=== PATIENT | female | born 1955 | race Caucasian/White ===

== ENCOUNTER 2017-05-22 13:12 | Emergency (ER) | payer MEDICARE, OTHER ==
[~2017-05-22] VITALS: Ht 157.5 cm; Wt 82.0 kg
[2017-05-22] MEDS ORDERED: HYDROmorphone 1 MG/ML, 1ML ONE (14:11)
[2017-05-22] MEDS ORDERED: DIAZEPAM 5 MG TABLET ONE (14:11)
[2017-05-22] MEDS ORDERED: PLEASE ENTER ALLERGIES MC SCH ×2 (14:30)
[2017-05-22] MEDS ORDERED: DIAZEPAM 5 MG TABLET PO ONE (14:30)
[2017-05-22] MEDS ORDERED: HYDROmorphone 1 MG/ML, 1ML IM ONE (14:30)
[2017-05-22 16:13] VITALS: BP 136/72
[2017-05-22] MEDS ORDERED: DEXAMETHASONE 4 MG/ML, 5ML ONE (17:14)
[2017-05-22] MEDS ORDERED: HALOPERIDOL 5 MG/ML ONE (17:41)
[2017-05-22] MEDS ORDERED: DEXAMETHASONE 4 MG/ML, 1ML PO ONE (18:00)
== END 2017-05-22 17:48 | disposition home or self-care (01) ==
LOC: ED 15:00
DX: S70.02XA Contusion of left hip, initial encounter (principal); M54.16 Radiculopathy, lumbar region; I10 Essential (primary) hypertension; J44.9 Chronic obstructive pulmonary disease, unspecified; W19.XXXA Unspecified fall, initial encounter; Y93.89 Activity, other specified; Y92.009 Unspecified place in unspecified non-institutional (private) residence as the place of occurrence of the external cause; Y99.9 Unspecified external cause status
CPT/HCPCS: 72110; 72131; 72192; 96372; 99284; J1100; J1170

== ENCOUNTER 2017-09-26 15:50 | Inpatient (IN) | payer MEDICARE, OTHER ==
[~2017-09-26] VITALS: Ht 154.9 cm; Wt 96.0 kg
[2017-09-26 16:29] LABS: BASOPHILS # (AUTO) 0.04 x10^3/uL (0-0.1); BASOPHILS % (AUTO) 0 % (0-1); EOSINOPHILS # (AUTO) 0.15 x10^3/uL (0-0.4); EOSINOPHILS % (AUTO) 1 % (1-7); LYMPHOCYTES # (AUTO) 2.28 x10^3/uL (1-3.4); LYMPHOCYTES % (AUTO) 20 % (22-44); MD NO; MEAN CORPUSCULAR HEMOGLOBIN 27.7 pg (27.0-34.8); MEAN CORPUSCULAR HGB CONC 32.7 g/dL (32.4-35.8); MEAN CORPUSCULAR VOLUME 84.6 fL (80-100); MEAN PLATELET VOLUME 8.2 fL (7.4-10.4); MONOCYTES # (AUTO) 0.99 x10^3/uL (0.2-0.8); MONOCYTES % (AUTO) 9 % (2-9); NEUTROPHILS # (AUTO) 7.76 x10^3/uL (1.8-6.8); NEUTROPHILS % (AUTO) 69 % (42-75); PLATELET COUNT 271 x10^3/uL (130-400); RED BLOOD COUNT 4.76 x10^6/uL (3.82-5.3); RED CELL DISTRIBUTION WIDTH 14.5 % (9.6-15.2)
[2017-09-26] MEDS ORDERED: SODIUM CHLORIDE FLUSH 10ML SYR IVF ONE ×2 (16:30→18:30)
[2017-09-26 16:37] LABS: MICROSCOPIC NOT IND
[2017-09-26] MEDS ORDERED: GABA100C PO (16:37)
[2017-09-26] MEDS ORDERED: HYDR-3245 PO (16:37)
[2017-09-26] MEDS ORDERED: CARV6.252 PO (16:37)
[2017-09-26] MEDS ORDERED: SOLI5TAB2 PO (16:37)
[2017-09-26] MEDS ORDERED: LORA2TAB PO (16:37)
[2017-09-26] MEDS ORDERED: ASPI-515 PO (16:37)
[2017-09-26] MEDS ORDERED: NITR0.4T28 SL (16:37)
[2017-09-26] MEDS ORDERED: FURO20TA3 PO (16:37)
[2017-09-26] MEDS ORDERED: LISI-170 PO (16:37)
[2017-09-26] MEDS ORDERED: CYCL-259 PO (16:37)
[2017-09-26] MEDS ORDERED: ALBU18HF INH (16:37)
[2017-09-26] MEDS ORDERED: CELE200C PO (16:37)
[2017-09-26] MEDS ORDERED: POTA10TA5 PO (16:37)
[2017-09-26] MEDS ORDERED: ESCI20TA PO (16:37)
[2017-09-26] MEDS ORDERED: TRAZ50TA18 PO (16:37)
[2017-09-26] MEDS ORDERED: PRED5TAB PO (16:37)
[2017-09-26 16:39] LABS: ALANINE AMINOTRANSFERASE 28 U/L (12-78); ALBUMIN 3.9 g/dL (3.4-5.0); ANION GAP 4 mmol/L (5-15); CALCIUM 9.5 mg/dL (8.5-10.1); CHLORIDE 107 mmol/L (98-107); CREATININE 0.98 mg/dL (0.55-1.02)
[2017-09-26 16:40] LABS: SALICYLATE LEVEL < 1.7 mg/dL (2.8-20.0)
[2017-09-26 16:44] LABS: ALKALINE PHOSPHATASE 86 U/L (45-117); BILIRUBIN,TOTAL 0.3 mg/dL (0.2-1.0); TOTAL PROTEIN 7.8 g/dL (6.4-8.2); TROPONIN I < 0.015 ng/mL (0.000-0.045)
[2017-09-26 16:48] LABS: AMPHETAMINE SCREEN, URINE Negative (Negative); BARBITURATE SCREEN, URINE Negative (Negative); BENZODIAZEPINE SCREEN, URINE Negative (Negative); CANNABINOID SCREEN, URINE Negative (Negative); COCAINE SCREEN, URINE Negative (Negative); METHADONE SCREEN, URINE Negative (Negative); OPIATE SCREEN, URINE Negative (Negative)
[2017-09-26 16:48] LABS: ACETAMINOPHEN < 2 mcg/mL (10-30)
[2017-09-26 16:52] LABS: CULTURE INDICATED? NO
[2017-09-26] MEDS ORDERED: SODIUM CHLORIDE 0.9% 1,000 ML IV ONE (18:00)
[2017-09-26] MEDS ORDERED: ALBUTEROL SULFATE 2.5 MG/3 ML NPPB PRN (19:30)
[2017-09-26] MEDS ORDERED: NITROGLYCERIN 0.4 MG BOTTLE (25 TABS) SL PRN (19:30)
[2017-09-26] MEDS ORDERED: ONDANSETRON ODT 4 MG PO PRN (19:30)
[2017-09-26] MEDS ORDERED: DOCUSATE 100 MG CAPSULE PO PRN (19:30)
[2017-09-26 20:20] LABS: FREE T4 (FREE THYROXINE) 0.95 ng/dL (0.76-1.46); THYROID STIMULATING HORMONE 0.708 mIU/L (0.358-3.740)
[2017-09-26 20:24] VITALS: BP 113/75
[2017-09-26 20:37] LABS: HEMOGLOBIN A1C 6.1 % (4.2-6.3)
[2017-09-26] MEDS: CARVEDILOL 6.25 MG TABLET PO SCH (21:08)
[2017-09-26] MEDS: CYCLOBENZAPRINE 10 MG TABLET PO SCH (21:10)
[2017-09-26] MEDS: TRAZODONE 50MG TABLET PO SCH (21:10)
[2017-09-26] MEDS: GABAPENTIN 100 MG CAPSULE PO SCH (21:10)
[2017-09-26] MEDS: HYDROcodone/APAP 10/325 MG TABLET PO PRN (21:11)
[2017-09-26] MEDS: ENOXAPARIN 40 MG/0.4 ML SQ SCH (21:11)
[2017-09-27 00:42] VITALS: BP 114/73
[2017-09-27 05:22] LABS: BASOPHILS # (AUTO) 0.04 x10^3/uL (0-0.1); BASOPHILS % (AUTO) 0 % (0-1); EOSINOPHILS # (AUTO) 0.11 x10^3/uL (0-0.4); EOSINOPHILS % (AUTO) 1 % (1-7); LYMPHOCYTES # (AUTO) 2.56 x10^3/uL (1-3.4); LYMPHOCYTES % (AUTO) 26 % (22-44); MD NO; MEAN CORPUSCULAR HEMOGLOBIN 27.8 pg (27.0-34.8); MEAN CORPUSCULAR HGB CONC 32.8 g/dL (32.4-35.8); MEAN CORPUSCULAR VOLUME 84.7 fL (80-100); MEAN PLATELET VOLUME 8.4 fL (7.4-10.4); MONOCYTES # (AUTO) 0.71 x10^3/uL (0.2-0.8); MONOCYTES % (AUTO) 7 % (2-9); NEUTROPHILS % (AUTO) 66 % (42-75); PLATELET COUNT 237 x10^3/uL (130-400); RED BLOOD COUNT 4.48 x10^6/uL (3.82-5.3)
[2017-09-27 05:32] LABS: CHLORIDE 108 mmol/L (98-107)
[2017-09-27 05:46] LABS: ANION GAP 5 mmol/L (5-15); CALCIUM 9.8 mg/dL (8.5-10.1); CHOL/HDL RATIO 2.2; CHOLESTEROL, TOTAL 125 mg/dL (140-239); CREATININE 0.75 mg/dL (0.55-1.02); HDL CHOL % 46 % (28-40); HDL CHOLESTEROL (DIRECT) 57 mg/dL (40-60); LDL CHOLESTEROL,CALCULATED 52 mg/dL (54-169); LDL/HDL RATIO 0.9 (0.5-3.0); TRIGLYCERIDES 81 mg/dL (50-200); VLDL CHOLESTEROL 16 mg/dL (0-25)
[2017-09-27 07:38] VITALS: BP 126/92
[2017-09-27] MEDS: FUROSEMIDE 20 MG TABLET PO SCH (09:01)
[2017-09-27] MEDS: CARVEDILOL 6.25 MG TABLET PO SCH ×2 (09:01→20:18)
[2017-09-27] MEDS: OXYBUTYNIN CHLORIDE 5 MG TABLET PO SCH ×2 (09:01→20:18)
[2017-09-27] MEDS: GABAPENTIN 100 MG CAPSULE PO SCH ×3 (09:01→20:19)
[2017-09-27] MEDS: CYCLOBENZAPRINE 10 MG TABLET PO SCH ×3 (09:01→20:19)
[2017-09-27] MEDS: POTASSIUM CHLORIDE 10 MEQ TABLET.ER PO SCH (09:01)
[2017-09-27] MEDS: LISINOPRIL 20 MG TABLET PO SCH (09:01)
[2017-09-27] MEDS: CITALOPRAM 20 MG TABLET PO SCH (09:01)
[2017-09-27] MEDS: ASPIRIN 81 MG TABLET EC PO SCH (09:01)
[2017-09-27 12:42] VITALS: BP 123/85
[2017-09-27] MEDS ORDERED: GADOBUTROL 10 MMOL/10 ML VIAL ONE (15:16)
[2017-09-27 19:29] VITALS: BP 102/66
[2017-09-27] MEDS: TRAZODONE 50MG TABLET PO SCH (20:18)
[2017-09-27] MEDS: ENOXAPARIN 40 MG/0.4 ML SQ SCH (20:27)
[2017-09-28 02:30] VITALS: BP 94/54
[2017-09-28 08:29] VITALS: BP 93/69
[2017-09-28] MEDS: ASPIRIN 81 MG TABLET EC PO SCH (08:55)
[2017-09-28] MEDS: CYCLOBENZAPRINE 10 MG TABLET PO SCH ×2 (08:55→16:08)
[2017-09-28] MEDS: OXYBUTYNIN CHLORIDE 5 MG TABLET PO SCH (08:56)
[2017-09-28] MEDS: POTASSIUM CHLORIDE 10 MEQ TABLET.ER PO SCH (08:56)
[2017-09-28] MEDS: FUROSEMIDE 20 MG TABLET PO SCH (08:56)
[2017-09-28] MEDS: CARVEDILOL 6.25 MG TABLET PO SCH (08:58)
[2017-09-28] MEDS: GABAPENTIN 100 MG CAPSULE PO SCH ×2 (08:58→16:08)
[2017-09-28] MEDS: LISINOPRIL 20 MG TABLET PO SCH (08:59)
[2017-09-28] MEDS: CITALOPRAM 20 MG TABLET PO SCH (08:59)
[2017-09-28] MEDS: HYDROcodone/APAP 10/325 MG TABLET PO PRN ×2 (13:24→18:09)
[2017-09-28 13:34] VITALS: BP 109/74
[2017-09-28] MEDS ORDERED: GABA100C PO (15:15)
[2017-09-28] MEDS ORDERED: DOCU-131 PO (15:15)
== END 2017-09-28 18:31 | disposition home or self-care (01) | DRG 92 ==
LOC: ED 17:28 → UNDOADMIN 17:44 → EDIP 17:44 → 4EST 18:07
PROVIDERS: ADMIT Hospitalist; ATTEND Hospitalist
DX: G92 Toxic encephalopathy (principal); F33.9 Major depressive disorder, recurrent, unspecified; I95.9 Hypotension, unspecified; I11.9 Hypertensive heart disease without heart failure; E66.01 Morbid (severe) obesity due to excess calories; R56.9 Unspecified convulsions; F11.20 Opioid dependence, uncomplicated; G45.9 Transient cerebral ischemic attack, unspecified; Z68.41 Body mass index [BMI] 40.0-44.9, adult; E78.5 Hyperlipidemia, unspecified; I20.9 Angina pectoris, unspecified; F41.9 Anxiety disorder, unspecified; J44.9 Chronic obstructive pulmonary disease, unspecified; Z80.0 Family history of malignant neoplasm of digestive organs; Z82.49 Family history of ischemic heart disease and other diseases of the circulatory system; Z87.891 Personal history of nicotine dependence; Z83.3 Family history of diabetes mellitus; Z90.710 Acquired absence of both cervix and uterus; Z98.51 Tubal ligation status; T50.905A Adverse effect of unspecified drugs, medicaments and biological substances, initial encounter; Y92.89 Other specified places as the place of occurrence of the external cause; G89.29 Other chronic pain; M54.9 Dorsalgia, unspecified; M19.90 Unspecified osteoarthritis, unspecified site
CPT/HCPCS: 36415; 70450; 70553; 71045; 80048; 80053; 80061; 80307; 80329; 81003; 82140; 83036; 83605; 83735; 84439; 84443; 84484; 85025; 93005; 93306; 93880; 99285; A9585; J1650; 92523-GN; G0480; J7512

== ENCOUNTER 2017-10-27 13:43 | Inpatient (IN) | payer MEDICARE ==
[~2017-10-27] VITALS: Ht 157.5 cm; Wt 94.2 kg
[~2017-10-27 13:43] MED LIST: ALBU18HF INH; ASPI-515 PO; CARV6.252 PO; CELE200C PO; CYCL-259 PO; DOCU-131 PO; ESCI20TA PO; FURO20TA3 PO; GABA100C PO; HYDR-3245 PO; LISI-170 PO; LORA2TAB PO; NITR0.4T28 SL; POTA10TA5 PO; PRED5TAB PO; SOLI5TAB2 PO; TRAZ50TA18 PO
[2017-10-27] MEDS ORDERED: MECLIZINE CHEWABLE 25 MG TAB PO ONE (14:00)
[2017-10-27] MEDS ORDERED: PLEASE ENTER HEIGHT AND WEIGHT MC SCH (14:00)
[2017-10-27] MEDS ORDERED: SODIUM CHLORIDE FLUSH 10ML SYR IVF ONE (14:00)
[2017-10-27] MEDS ORDERED: MECLIZINE CHEWABLE 25 MG TAB ONE (14:06)
[2017-10-27] MEDS ORDERED: FURO-93 PO (14:18)
[2017-10-27 14:33] LABS: MEAN CORPUSCULAR HGB CONC 32.2 g/dL (32.4-35.8); MEAN CORPUSCULAR VOLUME 83.7 fL (80-100); MEAN PLATELET VOLUME 8.9 fL (7.4-10.4); PLATELET COUNT 287 x10^3/uL (130-400); RED BLOOD COUNT 5.14 x10^6/uL (3.82-5.3); RED CELL DISTRIBUTION WIDTH 14.4 % (9.6-15.2)
[2017-10-27 14:42] LABS: ALANINE AMINOTRANSFERASE 33 U/L (12-78); ALBUMIN 3.6 g/dL (3.4-5.0); ANION GAP 8 mmol/L (5-15); CALCIUM 9.9 mg/dL (8.5-10.1); CHLORIDE 108 mmol/L (98-107)
[2017-10-27 14:47] LABS: ALKALINE PHOSPHATASE 94 U/L (45-117); BILIRUBIN,TOTAL 0.2 mg/dL (0.2-1.0); CREATININE 0.93 mg/dL (0.55-1.02); TOTAL PROTEIN 7.3 g/dL (6.4-8.2); TROPONIN I < 0.015 ng/mL (0.000-0.045)
[2017-10-27 15:07] LABS: BASOPHILS # (AUTO) 0.04 x10^3/uL (0-0.1); BASOPHILS % (AUTO) 0 % (0-1); EOSINOPHILS # (AUTO) 0.26 x10^3/uL (0-0.4); EOSINOPHILS % (AUTO) 2 % (1-7); LYMPHOCYTES # (AUTO) 2.34 x10^3/uL (1-3.4); LYMPHOCYTES % (AUTO) 18 % (22-44); MD SCAN; MONOCYTES # (AUTO) 1.56 x10^3/uL (0.2-0.8); MONOCYTES % (AUTO) 12 % (2-9); NEUTROPHILS # (AUTO) 8.96 x10^3/uL (1.8-6.8); NEUTROPHILS % (AUTO) 68 % (42-75)
[2017-10-27] MEDS ORDERED: ATOR-2 PO (15:12)
[2017-10-27] MEDS ORDERED: SODIUM CHLORIDE 0.9% 1,000ML IVBOLUS ONE (16:00)
[2017-10-27 16:56] LABS: CULTURE INDICATED? YES; MICROSCOPIC INDICATED
[2017-10-27] MEDS ORDERED: METOCLOPRAMIDE 5 MG/ML, 2ML IVPush PRN (17:00)
[2017-10-27] MEDS ORDERED: ONDANSETRON ODT 4 MG PO PRN (17:00)
[2017-10-27 17:03] LABS: AMPHETAMINE SCREEN, URINE Negative (Negative); BARBITURATE SCREEN, URINE Negative (Negative); BENZODIAZEPINE SCREEN, URINE Negative (Negative); CANNABINOID SCREEN, URINE Negative (Negative); COCAINE SCREEN, URINE Negative (Negative); METHADONE SCREEN, URINE Negative (Negative); OPIATE SCREEN, URINE Negative (Negative)
[2017-10-27] MEDS ORDERED: DEXTROSE 50%, 50ML SYRINGE IVPush PRN (18:00)
[2017-10-27] MEDS ORDERED: DEXTROSE 4 GM TAB.CHEW PO PRN (18:00)
[2017-10-27] MEDS ORDERED: GLUCAGON 1 MG IM PRN (18:00)
[2017-10-27 18:02] VITALS: BP 123/73
[2017-10-27] MEDS: ACETAMINOPHEN 325 MG TABLET PO PRN ×2 (18:07→23:16)
[2017-10-27 18:46] VITALS: BP 135/94
[2017-10-27] MEDS: ALBUTEROL/IPRATROPIUM 2.5MG/0.5MG, 3 ML NPPB SCH (20:25)
[2017-10-27] MEDS: INSULIN REGULAR 100 UNITS/ML, 3ML VIAL SQ-INSULIN SCH (21:00)
[2017-10-27 22:34] LABS: TROPONIN I < 0.015 ng/mL (0.000-0.045)
[2017-10-27] MEDS: GABAPENTIN 100 MG CAPSULE PO SCH (23:15)
[2017-10-27] MEDS: CYCLOBENZAPRINE 10 MG TABLET PO SCH (23:15)
[2017-10-27] MEDS: ATORVASTATIN 40 MG TABLET PO SCH (23:15)
[2017-10-27] MEDS: SODIUM CHLORIDE FLUSH 10ML SYR IVF SCH (23:17)
[2017-10-27] MEDS: CEFTRIAXONE 2 GM in DEXTROSE 5% 50 ML IV SCH (23:42)
[2017-10-28 00:18] VITALS: BP 105/70
[2017-10-28 04:12] LABS: TROPONIN I < 0.015 ng/mL (0.000-0.045)
[2017-10-28] MEDS: ACETAMINOPHEN 325 MG TABLET PO PRN ×2 (05:26→09:53)
[2017-10-28] MEDS: ALBUTEROL/IPRATROPIUM 2.5MG/0.5MG, 3 ML NPPB SCH ×4 (06:54→19:43)
[2017-10-28] MEDS: INSULIN REGULAR 100 UNITS/ML, 3ML VIAL SQ-INSULIN SCH ×4 (07:00→21:00)
[2017-10-28 07:20] VITALS: BP 102/69
[2017-10-28] MEDS: SOLIFENACIN SUCCINATE 5 MG PO SCH (09:00)
[2017-10-28] MEDS: CYCLOBENZAPRINE 10 MG TABLET PO SCH ×3 (09:07→21:22)
[2017-10-28] MEDS: GABAPENTIN 100 MG CAPSULE PO SCH ×3 (09:07→21:22)
[2017-10-28] MEDS: CITALOPRAM 20 MG TABLET PO SCH (09:08)
[2017-10-28] MEDS: ASPIRIN 81 MG TABLET EC PO SCH (09:08)
[2017-10-28] MEDS: SODIUM CHLORIDE FLUSH 10ML SYR IVF SCH ×3 (09:09→21:22)
[2017-10-28 10:12] LABS: BASOPHILS # (AUTO) 0.04 x10^3/uL (0-0.1); BASOPHILS % (AUTO) 1 % (0-1); EOSINOPHILS # (AUTO) 0.19 x10^3/uL (0-0.4); EOSINOPHILS % (AUTO) 2 % (1-7); LYMPHOCYTES % (AUTO) 36 % (22-44); MD NO; MEAN CORPUSCULAR HEMOGLOBIN 27.1 pg (27.0-34.8); MEAN CORPUSCULAR VOLUME 84.6 fL (80-100); MEAN PLATELET VOLUME 8.6 fL (7.4-10.4); MONOCYTES # (AUTO) 0.66 x10^3/uL (0.2-0.8); MONOCYTES % (AUTO) 8 % (2-9); NEUTROPHILS # (AUTO) 4.31 x10^3/uL (1.8-6.8); NEUTROPHILS % (AUTO) 53 % (42-75); PLATELET COUNT 257 x10^3/uL (130-400); RED BLOOD COUNT 4.37 x10^6/uL (3.82-5.3); RED CELL DISTRIBUTION WIDTH 14.4 % (9.6-15.2)
[2017-10-28 10:25] LABS: ANION GAP 5 mmol/L (5-15); CALCIUM 9.6 mg/dL (8.5-10.1); CHLORIDE 105 mmol/L (98-107)
[2017-10-28 10:28] LABS: CREATININE 0.83 mg/dL (0.55-1.02)
[2017-10-28 12:47] VITALS: BP 112/76
[2017-10-28] MEDS ORDERED: DIPHENHYDRAMINE 50 MG/ML, 1ML IVPush ONE (14:30)
[2017-10-28] MEDS ORDERED: ASPIRIN 325 MG TABLET EC PO ONE (14:30)
[2017-10-28 14:58] LABS: HEMOGLOBIN A1C 5.9 % (4.2-6.3)
[2017-10-28] MEDS: ENOXAPARIN 40 MG/0.4 ML SQ SCH (15:29)
[2017-10-28] MEDS: SODIUM CHLORIDE 0.9% 1,000 ML IV SCH (15:30)
[2017-10-28] MEDS ORDERED: METOCLOPRAMIDE 5 MG/ML, 2ML IVPush PRN (17:00)
[2017-10-28] MEDS: CEFTRIAXONE 2 GM in DEXTROSE 5% 50 ML IV SCH (18:02)
[2017-10-28 19:55] VITALS: BP 108/68
[2017-10-28] MEDS: ATORVASTATIN 40 MG TABLET PO SCH (21:22)
[2017-10-28] MEDS: KETOROLAC 30 MG/1 ML IVPush PRN (22:26)
[2017-10-29 00:40] VITALS: BP 105/63
[2017-10-29] MEDS: SODIUM CHLORIDE 0.9% 1,000 ML IV SCH (02:55)
[2017-10-29 05:20] LABS: LDL/HDL RATIO 0.6 (0.5-3.0)
[2017-10-29] MEDS ORDERED: ASPIRIN 325 MG TABLET EC PO SCH (06:00)
[2017-10-29] MEDS: ACETAMINOPHEN 325 MG TABLET PO PRN (06:04)
[2017-10-29] MEDS: ALBUTEROL/IPRATROPIUM 2.5MG/0.5MG, 3 ML NPPB SCH ×4 (06:45→20:48)
[2017-10-29] MEDS: INSULIN REGULAR 100 UNITS/ML, 3ML VIAL SQ-INSULIN SCH ×4 (07:00→21:55)
[2017-10-29 08:01] VITALS: BP 107/73
[2017-10-29] MEDS: SODIUM CHLORIDE FLUSH 10ML SYR IVF SCH ×4 (08:24→21:00)
[2017-10-29] MEDS: CITALOPRAM 20 MG TABLET PO SCH (08:26)
[2017-10-29] MEDS: CYCLOBENZAPRINE 10 MG TABLET PO SCH ×3 (08:27→21:58)
[2017-10-29] MEDS: GABAPENTIN 100 MG CAPSULE PO SCH ×3 (08:28→21:59)
[2017-10-29] MEDS: ASPIRIN 81 MG TABLET EC PO SCH ×2 (08:30→11:10)
[2017-10-29] MEDS: SOLIFENACIN SUCCINATE 5 MG PO SCH (08:30)
[2017-10-29] MEDS ORDERED: REGADENOSON 0.4 MG/5 ML SYRINGE ONE (09:06)
[2017-10-29] MEDS: KETOROLAC 30 MG/1 ML IVPush PRN (11:10)
[2017-10-29 13:16] VITALS: BP 119/77
[2017-10-29] MEDS ORDERED: METOCLOPRAMIDE 5 MG/ML, 2ML IVPush ONE ×2 (13:30→22:35)
[2017-10-29] MEDS ORDERED: DIPHENHYDRAMINE 50 MG/ML, 1ML IVPush ONE (13:30)
[2017-10-29] MEDS: ENOXAPARIN 40 MG/0.4 ML SQ SCH (15:00)
[2017-10-29 15:40] VITALS: BP 130/77
[2017-10-29] MEDS ORDERED: OMNIPAQUE 350 MG/ML, 100ML BOTTLE ONE (16:23)
[2017-10-29] MEDS ORDERED: CEFTRIAXONE 2 GM in DEXTROSE 5% 50 ML IV SCH (18:00)
[2017-10-29 18:27] VITALS: BP 111/72
[2017-10-29] MEDS: ATORVASTATIN 40 MG TABLET PO SCH (21:58)
[2017-10-30 02:01] VITALS: BP 138/87
[2017-10-30 06:55] VITALS: BP 107/70
[2017-10-30] MEDS: INSULIN REGULAR 100 UNITS/ML, 3ML VIAL SQ-INSULIN SCH ×2 (07:00→11:00)
[2017-10-30] MEDS: ALBUTEROL/IPRATROPIUM 2.5MG/0.5MG, 3 ML NPPB SCH ×2 (08:33→12:43)
[2017-10-30] MEDS: SOLIFENACIN SUCCINATE 5 MG PO SCH (09:00)
[2017-10-30] MEDS: ASPIRIN 81 MG TABLET EC PO SCH (09:00)
[2017-10-30] MEDS: SODIUM CHLORIDE FLUSH 10ML SYR IVF SCH ×2 (09:00→09:02)
[2017-10-30] MEDS: CITALOPRAM 20 MG TABLET PO SCH (09:00)
[2017-10-30] MEDS: CYCLOBENZAPRINE 10 MG TABLET PO SCH (09:00)
[2017-10-30] MEDS: GABAPENTIN 100 MG CAPSULE PO SCH (09:00)
[2017-10-30] MEDS: KETOROLAC 30 MG/1 ML IVPush PRN (10:32)
[2017-10-30] MEDS: ACETAMINOPHEN 325 MG TABLET PO PRN (10:32)
[2017-10-30 14:44] VITALS: BP 146/86
== END 2017-10-30 15:22 | disposition home or self-care (01) | DRG 871 ==
LOC: ED 15:21 → EDIP 15:51 → 5SO 17:27 → 4EST 10-29 17:12
PROVIDERS: ADMIT Hospitalist; ATTEND Hospitalist
DX: A41.9 Sepsis, unspecified organism (principal); G92 Toxic encephalopathy; F11.20 Opioid dependence, uncomplicated; E66.01 Morbid (severe) obesity due to excess calories; D89.9 Disorder involving the immune mechanism, unspecified; N39.0 Urinary tract infection, site not specified; F33.9 Major depressive disorder, recurrent, unspecified; J44.9 Chronic obstructive pulmonary disease, unspecified; E11.9 Type 2 diabetes mellitus without complications; F41.9 Anxiety disorder, unspecified; G89.29 Other chronic pain; I10 Essential (primary) hypertension; I20.9 Angina pectoris, unspecified; M19.90 Unspecified osteoarthritis, unspecified site; Z86.73 Personal history of transient ischemic attack (TIA), and cerebral infarction without residual deficits; Z68.38 Body mass index [BMI] 38.0-38.9, adult
CPT/HCPCS: 36415; 36600; 70450; 70496; 70498; 71045; 78452; 80048; 80053; 80061; 80307; 81001; 82140; 82803; 82962; 83036; 83605; 83735; 84100; 84145; 84484; 85025; 85379; 85651; 86140; 87040; 87086; 93005; 93017; 94640; 99285; J0696; J1650; J1885; J2785; J7620; Q9967; 92523-GN; A9502; C9898; J1200; J2765; J7030; J7512